=== PATIENT | female | born 2000 | race Caucasian/White ===

== ENCOUNTER 2021-01-13 11:18 | Emergency (ER) | payer BC ==
[2021-01-13 11:36] VITALS: BP 111/59; PULSE 91
[2021-01-13] MEDS ORDERED: Penicillin G Benzathine 1,200,000 Units/2 ML Syringe IM ONE (11:47)
[2021-01-13] MEDS ORDERED: Ketorolac 60 MG/2 ML SDV IM ONE (11:47)
--- NOTE | 2021-01-13 12:05 | EDM.PDOC ---
ED HPI GENERAL MEDICAL PROBLEM - General Chief Complaint: ENT Problem Stated Complaint: SORE THROAT Time Seen by Provider: 01/13/21 11:37 Source of Information: Reports: Patient History Limitations: Reports: No Limitations, Other (Vital signs reveal a temp of 99.1, pulse of 91, respiratory rate of 16, blood pressure 111/59, pulse ox 97% on room air) - History of Present Illness INITIAL COMMENTS - FREE TEXT/NARRATIVE: 20-year-old female who presents with complaints of a sore throat. Patient states that sore throat developed 3 days ago. She states that the sore throat progressively worsened and she was seen at [place] walk[facility]in [facility] 2 days ago. She was swabbed for strep at that time and they stated that it was negative so she was sent home. Patient states that sore throat has progressively gotten worse and that she is having a difficult time swallowing. She has developed nausea, fever, chills and diarrhea. She denies vomiting, cough or shortness of breath. Patient states she is otherwise healthy and does not take any prescription medications. Throat Pain Score (Numeric/FACES): 8 - Related Data Allergies Allergy/AdvReac Type Severity Reaction Status Date / Time No Known Allergies Allergy Verified 01/13/21 11:36 Home Meds: Home Meds . [No Known Home Meds] 10/23/15 [History] Past Medical History - Past Health History Medical/Surgical History: Denies Medical/Surgical History Social & Family History - Tobacco Use Tobacco Use Status *Q: Never Tobacco User - Recreational Drug Use Recreational Drug Use: No ED ROS ENT - Review of Systems Review Of Systems: Comprehensive ROS is negative, except as noted in HPI. ED EXAM, ENT - Physical Exam Exam: See Below Exam Limited By: No Limitations General Appearance: Alert, WD/WN, Mild Distress Ears: Normal External Exam, Normal Canal, Hearing Grossly Normal, Normal TMs Nose: Normal Inspection Mouth/Throat: Normal Inspection, Normal Gums, Normal Lips, Normal Teeth, Throat Pain, Tonsillar Erythema, Tonsillar Exudates (Left greater than right), Tonsillar Swelling. No: Normal Oropharynx Head: Atraumatic, Normocephalic Neck: Normal Inspection, Supple, Lymphadenopathy (L) (Anterior cervical lymph nodes) Respiratory/Chest: No Respiratory Distress, Lungs Clear, Normal Breath Sounds, No Accessory Muscle Use, Chest Non-Tender Cardiovascular: Normal Peripheral Pulses, Regular Rate, Rhythm, No Edema, No Murmur GI/Abdominal: Normal Bowel Sounds, Soft, Non-Tender, No Distention (Female) Exam: Deferred Rectal (Female) Exam: Deferred Back: Normal Inspection Extremities: Normal Inspection, Normal Range of Motion Neurological: Alert, Oriented, Normal Cognition Psychiatric: Normal Affect, Normal Mood Skin: Warm, Dry, Intact, Normal Color, No Rash Lymphatic: No Adenopathy Course - Vital Signs Text/Narrative:: Presents with a 3-day history of sore throat. Was swabbed for strep 2 days ago at the walk-in clinic and this was negative. Patient has since developed nausea, fever, chills and diarrhea. Upon assessment, patient has very large anterior cervical lymph node felt on the left side. It is approximately the size of a quarter. Tonsils are erythematous and edematous. There is exudate noted on both tonsils however the left tonsil has a moderate amount of exudate noted. Patient's voice is muffled. She does complain of bilateral ear discomfort however tympanic membranes in both ears are unremarkable. I will order for the patient to have benzathine penicillin G 1,200,000 units IM once and Toradol 60 mg IM x1 dose. She will then be discharged home with recommendations that she alternate Tylenol 650 mg with ibuprofen 600 mg every 4 hours for the next 48 hours as it will likely take 24 to 48 hours for her to notice the antibiotics working. The patient's mother is at the bedside with her and they both verbalized understanding of these instructions. Last Recorded V/S: Last Vital Signs Temp 99.1 F 01/13/21 11:33 Pulse 91 01/13/21 11:33 Resp 16 01/13/21 11:33 BP 111/59 L 01/13/21 11:33 Pulse Ox 97 01/13/21 11:33 - Orders/Labs/Meds Meds: Medications Discontinued Medications Generic Name Dose Route Start Last Admin Trade Name Karlie PRN Reason Stop Dose Admin Ketorolac Tromethamine 60 mg 01/13/21 11:47 01/13/21 11:59 Ketorolac 60 Mg/2 Ml Sdv IM 01/13/21 11:48 60 mg ONETIME ONE Administration Penicillin G Benzathine 1.2 millunits 01/13/21 11:47 01/13/21 11:59 Penicillin G Benzathine 1,200,000 Units/2 Ml Syringe IM 01/13/21 11:48 1.2 millunits ONETIME ONE Administration Departure - Departure Time of Disposition: 12:06 Disposition: Home, Self-Care 01 Condition: Good Clinical Impression: Strep tonsillitis - Discharge Information Instructions: Tonsillitis, [id number] Referrals: Aundrea Kimble PA-C [Primary Care Provider] - Forms: ED Department Discharge Additional Instructions: You were seen in the ED with complaints of a sore throat. No swab was completed. By assessment, you have strep throat. You were given a shot of Penicillin and a shot of toradol. You will not need any further antibiotics as the shot of Penicillin will treat the infection. The shot of toradol you received, should relieve the pain and inflammation. Recommend that at 4:00 this afternoon you take Tylenol 650 mg and then alternate with ibuprofen 600 mg every 4 hours for the next 48 hours. This should help to significantly relieve the pain and swelling noted to your tonsils over the next 48 hours or so until the antibiotic fully kicks in. Be sure to drink plenty of fluids to flush out the infection. May use warm salt gargles as well for your throat. Pineapple juice has also been proven to decrease swelling and inflammation that is associated w ith sore throat. Should your condition worsen or change, do not hesitate returning to the emergency department. Sepsis Event Note (ED) - Evaluation Sepsis Screening Result: No Definite Risk - Focused Exam Vital Signs: Vital Signs Temp Pulse Resp BP Pulse Ox 01/13/21 11:33 99.1 F 91 16 111/59 L 97
== END 2021-01-13 12:19 | disposition home or self-care (01) ==
LOC: JD.ED 11:18
DX: J03.00 Acute streptococcal tonsillitis, unspecified (principal)
CPT/HCPCS: 96372; 99283; J0561; J1885